=== PATIENT | male | born 1995 | race Caucasian/White ===

== ENCOUNTER 2023-08-17 21:41 | Emergency (ER) | payer BC, SELFPAY ==
[2023-08-17 21:42] VITALS: BP 144/89; PULSE 106; RESP 18; TEMP 35.8; O2SAT 100; BMI 26.7
--- NOTE | 2023-08-17 22:56 | EX.ED.DYSGE1 ---
HPI History of Present Illness Chief Complaint: Headache Narrative Narrative: 27-year-old male who denies significant past medical history presents with his who is an RN with concern for stroke. He relates history that yesterday he had blurry vision out of his left eye for about 10 to 15 minutes. It resolved. Today, he woke with a mild headache. It is not one-sided. He denies any other symptoms. No fevers or chills, no cough. No paresthesias. He also relates history that he started having a runny nose today that was clear. He thinks that this is different than usual mucus that is discolored. He states that his was concerned because of the blurry vision out of his left eye now with headache. Once again, his symptoms have essentially resolved except for the rhinorrhea and just a slight, nonspecific headache. PFSH PFSH Allergy/AdvReac Type Severity Reaction Status Date / Time No Known Allergies Allergy Verified 08/17/23 21:42 Social History Smoking Status: Never smoker ROS ROS ED ROS Narrative Constitutional: No fever, no chills. HEENT: No sore throat. No neck pain. No loss of vision. Positive clear rhinorrhea. Blurry vision out of left eye yesterday for approximately 10 to 15 minutes-resolved Cardiovascular: No chest pain. No palpitations. No pedal edema. Respiratory: No cough, no shortness of breath. Abdominal: No abdominal pain. No nausea. No vomiting. Genitourinary: No dysuria. No hematuria. Musculoskeletal: No myalgias. No arthralgias. Neurologic: Positive headaches. No dizziness. No lightheadedness. Skin: No rash. No change in color. Psychiatric: No depression. No anxiety. EXAM Physical Exam Narrative Exam Narrative: Afebrile. Vital signs noted. HEENT: Normocephalic. Atraumatic. PERRL, EOMI. Neck soft and supple. No point tenderness or step off. Cardiovascular: Regular rate and rhythm. No murmurs, rubs, or gallops appreciated. Respiratory: No tachypnea. Lungs clear to auscultation bilaterally. Gastrointestinal: Abdomen soft, nontender, with normoactive bowel sounds. No rebound or guarding. Neurological: Awake. Alert. Nonfocal, nonlateralizing. NIH stroke scale is 0. Skin: No rash. Normal color. No pallor. Musculoskeletal: No pedal edema. Full range of motion extremities. Const Vital Signs: 08/17/23 21:42 Temperature 96.4 F L Temperature Source Temporal Pulse Rate 106 H Respiratory Rate 18 Blood Pressure 144/89 H Blood Pressure Mean 107 Pulse Ox 100 Oxygen Delivery Method Room Air Neuro oriented x3, CN's II-XII intact bilaterally and no sensory deficits noted Sensorium / Orientation: alert MDM MDM MDM Narrative Medical decision making narrative: I had a lengthy discussion with the patient and his . I do not feel that any laboratory work or CT imaging is indicated. His neurological examination is normal. It was documented by the RN that he had brought a [employer] bag in and had just recently eaten. They were reassured. As he has a nonurgent complaint, I feel he can be discharged to follow-up with his primary care provider. Once again, I do not feel that what he had was a TIA or stroke. Return instructions to the emergency department were reviewed. I do not feel he needs antibiotics for a sinus infection. He can try [id number] medications for his headache and for his clear rhinorrhea. Patient and are agreeable to the plan. Return instructions were reviewed. Disposition is discharged home in stable condition. History & Record Review Additional record(s) reviewed:: No prior records Discharge Plan Triage Chief Complaint: Headache ED Provider: Chace Choi Dx/Rx/DC Orders Clinical Impression: Rhinorrhea, Headache, Encounter for medical screening examination, Blurred vision, left eye Instructions: ED Headache Unspecified, ED Screening Exam Medical Nonurgent Primary Care Provider: NOT,DEFINED Referrals: NOT,DEFINED [Primary Care Provider] - Activity Restrictions/Additional Instructions: Follow-up with your primary care provider in the next 1 to 2 days. Return with new or worsening symptoms. Disposition Disposition: Home, Self Care
[2023-08-17 23:01] VITALS: BP 132/81; PULSE 84; RESP 16; TEMP 36.6; O2SAT 100
--- OUTSIDE RECORDS SUMMARY | 2023-08-17 23:07 | XMS RPT_ITS | CCD ---
Author Name Unknown Address [address] [place] [id number] Organization [facility] Care Team Providers Care Field Sampling Technician Name Role Phone REHAN, NAVARRO Huerta Admitting Unavailable REHAN, NAVARRO Huerta Attending Unavailable REHAN, NAVARRO Huerta Primary Care Unavailable REHAN, NAVARRO Huerta Admitting Unavailable REHAN, NAVARRO Huerta Attending Unavailable REHAN, NAVARRO Huerta Primary Care Unavailable JORGE SHAFFER MD Consulting Unavailable PROVIDER, UNKNOWN Consulting Unavailable PROVIDER, UNKNOWN Consulting Unavailable PROVIDER, UNKNOWN Consulting Unavailable Problems Problem Classification Problem Date Documented Da te Episodic/Chronic Other nervous system disorders (3 sources) Other disturbances of smell and taste; Translations: [Other disturbances of smell and taste] Onset: 07-12-2020 Episodic Unclassified (3 sources) Invalid ICD10 Description; Translations: [Invalid ICD10 Description] Onset: 08-30-2020 Results Test Name Value Interpretation Reference Range Facil ity Encounters Encounter Date Encounter Type Care Provider Facility Start: 08-30-2020 End: 08-30-2020 Patient encounter procedure NAVARRO VAN [facility] Start: 07-12-2020 End: 07-12-2020 Patient encounter procedure NAVARRO Huerta REHAN [facility] Payers Date Payer Category Payer Unknown [id number] 16.84 [id number] 1996 Unknown [id number] 16.84 [id number] Unknown [id number] Progress note 08-27-2021 Note Date & Type Note Facility 08-27-2021 Note HNO ID: [id number] Author: Amirah Mcdonough PA-C Service: ? 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 Subjective Nando Anaya is a 25 year old male. HPI Patient presents with sore throat, runny nose and congestion for 4 days. No fever or chills. No vomiting or diarrhea. No cough. He did have Covid about 2 months ago. He has tried Tylenol and NyQuil [id number]. Review of Systems Constitutional: Negative. HENT: Positive for congestion, rhinorrhea, sinus pressure and sore throat. Negative for ear pain. Respiratory: Negative for cough and shortness of breath. Cardiovascular: Negative. Gastrointestinal: Negative. Musculoskeletal: Negative. All other systems reviewed and are negative. PAST MEDICAL HISTORY Diagnosis Date - Depression 04/18/2012 - Flat feet 08/24/2011 - Leg pain 08/24/2011 referred to ortho Current Outpatient Medications Medication Sig Dispense Refill - triamcinolone acetonide (KENALOG) 0.1 % cream Apply 1 application to affected area three times daily. Apply sparingly to area for rash/itching. (Patient not taking: Reported on 08/27/2021 ) 30 g 0 - ketoconazole (NIZORAL) 2 % shampoo Apply 1 application to affected area once daily as needed. (Patient not taking: Reported on 08/27/2021 ) 120 mL 4 No current facility-administered medications for this visit. PAST SURGICAL HISTORY Procedure Laterality Date - ADENOIDECTOMY UNDER AGE 13 2007 - CIRCUMCISION W/CLAMP/OTH DEV W/BLOCK - EXC/DSTRJ LINGUAL TONSIL ANY METHOD SPX FAMILY HISTORY Problem Relation Age of Onset - Heart Paternal Grandfather - other (dression [Other]) Mother - other (Depression [Other]) Maternal Grandmother - other (Depression [Other]) Maternal Grandfather Social History Tobacco Use - Smoking status: Former Smoker Quit date: 05/19/2017 Years since quittin.2 - Smokeless tobacco: Former User Quit date: 01/16/2017 Substance Use Topics - Alcohol use: No - Drug use: No Objective BP 120/80 Pulse 77 Temp (!) 35.6 ?C (96 ?F) Resp 18 Wt 84.8 kg (187 lb) SpO2 99% Physical Exam Vitals reviewed. Constitutional: Appearance: Normal appearance. HENT: Head: Normocephalic and atraumatic. Right Ear: Tympanic membrane, ear canal and external ear normal. Left Ear: Tympanic membrane, ear canal and external ear normal. Nose: Congestion present. Right Sinus: No maxillary sinus tenderness or frontal sinus tenderness. Left Sinus: No maxillary sinus tenderness or frontal sinus tenderness. Mouth/Throat: Mouth: Mucous membranes are moist. Pharynx: Oropharynx is clear. No oropharyngeal exudate or posterior oropharyngeal erythema. Cardiovascular: Rate and Rhythm: Normal rate and regular rhythm. Heart sounds: Normal heart sounds. Pulmonary: Effort: Pulmonary effort is normal. Breath sounds: Normal breath sounds. Musculoskeletal: Cervical back: Neck supple. Lymphadenopathy: Cervical: No cervical adenopathy. Skin: General: Skin is warm and dry. Neurological: General: No focal deficit present. Mental Status: He is alert and oriented to person, place, and time. Assessment and Plan ASSESSMENT/PLAN: 1. Viral URI - ICD9: 465.9, ICD10: J06.9 - Discussed viral etiology and rationale for treatment. - Symptomatic treatment with prn analgesia - Supportive care with fluids and rest, flonase otc. - Follow up in 3-5 days if symptoms persist or sooner if worsening of symptoms Amirah Mcdonough PA-C [facility] Summary Purpose Family History No Family History Records FoundNo Family History Records Found Advance Directives No Advanced Directives Records FoundNo Advanced Directives Records Found Additional Source Comments (unrecognized sect ion and content) No Status Records FoundNo Status Records Found INFORMATION SOURCE (unrecogn ized section and content) DATE CREATED AUTHOR AUTHOR'S ARPITA ATION 09/16/[address] [facility] FOR RECORDS PERTAINING TO PATIENTS WHO ARE OR HAVE BEEN ENROLLED IN A CHEMICAL DEPENDENCY/SUBSTANCEABUSE PROGRAM, SOME INFORMATION MAY BE OMITTED. This clinical summary was aggregated from multiple sources. Caution should be exercised in using it in the provision of clinical care. This summary normalizes information from multiple sources, and as a consequence, information in this document may materially change the coding, format and clinical context of patient data. In addition, data may be omitted in some cases. CLINICAL DECISIONS SHOULD BE BASED ON THE PRIMARY CLINICAL RECORDS. [employer] provides no warranty or guarantee of the accuracy or completeness of information in this document.
== END 2023-08-17 23:05 | disposition home or self-care (01) ==
LOC: ED 23:05
PROVIDERS: Emergency Provider Emergency Medicine; PCP Family Medicine; Visit Provider Emergency Medicine
DX: J34.89 Other specified disorders of nose and nasal sinuses (principal); R51.9 Headache, unspecified; H53.8 Other visual disturbances
CPT/HCPCS: 99282